=== PATIENT | female | born 1995 | race Caucasian/White ===

== ENCOUNTER 2017-08-16 18:37 | Emergency (ER) | payer MEDICAID, OTHER ==
[~2017-08-16] VITALS: Ht 160 cm; Wt 59.5 kg
[2017-08-16 18:41] VITALS: BP 152/80; PULSE 95; RESP 16; TEMP 98.3; O2SAT 99
--- NOTE | 2017-08-16 19:48 | PD ---
HPI Chief Complaint: Abdominal Pain Time Seen by Provider: 19:34 Travel History International Travel<30 days: No Contact w/Intl Traveler<30days: No Traveled to known affect area: No History of Present Illness HPI The patient is a 22-year-old female who complains of right upper quadrant pain intermittently for a year. She is visiting from [place] and plans to go back to [place] to see her water pump assembler. She states she ate chili cheese dog yesterday and the pain got worse. She states a year ago she had a normal gallbladder ultrasound and hida scan. She then saw a water pump assembler who thought this may be ulcer pain and treated her with dexolant. The patient states this did not work. The water pump assembler did not do upper endoscopy yet on this patient. She denies any melanotic or bloody stools. The patient plans to return to [place], she wants blood work done here to see if anything bad is going on. If not, she will return to [place] and see her water pump assembler. PFSH Past Medical History ?: Not LMP: 07/19/2017 Social History Tobacco Use: No Allergies-Medications (Allergen,Severity, Reaction): Coded Allergies: morphine (Verified Allergy, Severe, STOPPED BREATHING, 08/16/17) avocado (Verified Allergy, Intermediate, ITCHY THROAT, 08/16/17) azithromycin (Verified Allergy, Intermediate, THROAT ITCHING, 08/16/17) Reported Meds & Prescriptions Reported Meds & Active Scripts Active Zofran (Ondansetron HCl) 4 Mg Tab 4 Mg PO Q6HR PRN Percocet (Oxycodone-Acetaminophen) 5-325 mg Tab 1 Tab PO Q6H PRN Review of Systems Except as stated in HPI: all other systems reviewed are Neg Physical Exam Narrative GENERAL: The patient is alert, oriented 3 and slight apparent distress with her abdominal discomfort. Her vital signs show blood pressure 152/80 but are otherwise normal. SKIN: Focused skin assessment warm/dry. HEAD: Atraumatic. Normocephalic. EYES: Pupils equal and round. No scleral icterus. No injection or drainage. ENT: No nasal bleeding or discharge. Mucous membranes pink and moist. NECK: Trachea midline. No JVD. CARDIOVASCULAR: Regular rate and rhythm. No murmur appreciated. RESPIRATORY: No accessory muscle use. Clear to auscultation. Breath sounds equal bilaterally. GASTROINTESTINAL: Abdomen soft, with the double tenderness of the right upper quadrant to direct palpation, nondistended. Hepatic and splenic margins not palpable. Briceno's sign is negative. There is no flank tenderness present. MUSCULOSKELETAL: No obvious deformities. No clubbing. No cyanosis. No edema. NEUROLOGICAL: Awake and alert. No obvious cranial nerve deficits. Motor grossly within normal limits. Normal speech. PSYCHIATRIC: Appropriate mood and affect; insight and judgment normal. Data Data Last Documented VS Vital Signs Date Time Temp Pulse Resp B/P (MAP) Pulse Ox O2 Delivery O2 Flow Rate FiO2 08/16/17 18:41 98.3 95 16 152/80 (104) 99 Orders Orders Complete Blood Count With Diff (08/16/17 19:48) Comprehensive Metabolic Panel (08/16/17 19:48) Lipase (08/16/17 19:48) Urinalysis - C+S If Indicated (08/16/17 19:48) Hydromorphone Pf Inj (Dilaudid Pf Inj) (08/16/17 20:00) Ondansetron Inj (Zofran Inj) (08/16/17 20:00) Sodium Chlor 0.9% 1000 Ml Inj (Ns 1000 M (08/16/17 20:00) Labs Laboratory Tests Test 08/16/17 20:03 White Blood Count 11.2 TH/MM3 Red Blood Count 4.65 MIL/MM3 Hemoglobin 13.9 GM/DL Hematocrit 41.7 % Mean Corpuscular Volume 89.7 FL Mean Corpuscular Hemoglobin 29.8 PG Mean Corpuscular Hemoglobin Concent 33.3 % Red Cell Distribution Width 11.8 % Platelet Count 201 TH/MM3 Mean Platelet Volume 9.6 FL Neutrophils (%) (Auto) 66.1 % Lymphocytes (%) (Auto) 25.8 % Monocytes (%) (Auto) 5.7 % Eosinophils (%) (Auto) 2.1 % Basophils (%) (Auto) 0.3 % Neutrophils # (Auto) 7.5 TH/MM3 Lymphocytes # (Auto) 2.9 TH/MM3 Monocytes # (Auto) 0.6 TH/MM3 Eosinophils # (Auto) 0.2 TH/MM3 Basophils # (Auto) 0.0 TH/MM3 CBC Comment DIFF FINAL Differential Comment Urine Color STRAW Urine Turbidity CLEAR Urine pH 6.0 Urine Specific [place] 1.003 Urine Protein NEG mg/dL Urine Glucose (UA) NEG mg/dL Urine Ketones NEG mg/dL Urine Occult Blood NEG Urine Nitrite NEG Urine Bilirubin NEG Urine Leukocyte Esterase NEG Urine RBC 0-3 /hpf Urine WBC 0-2 /hpf Urine Squamous Epithelial Cells 6-8 /hpf Urine Bacteria FEW /hpf Microscopic Urinalysis Comment CULT NOT INDICATED Blood Urea Nitrogen 11 MG/DL Creatinine 0.66 MG/DL Random Glucose 84 MG/DL Total Protein 7.3 GM/DL Albumin 3.9 GM/DL Calcium Level 9.0 MG/DL Alkaline Phosphatase 75 U/L Aspartate Amino Transf (AST/SGOT) 11 U/L Alanine Aminotransferase (ALT/SGPT) 18 U/L Total Bilirubin 0.4 MG/DL Sodium Level 138 MEQ/L Potassium Level 3.5 MEQ/L Chloride Level 106 MEQ/L Carbon Dioxide Level 25.7 MEQ/L Anion Gap 6 MEQ/L Estimat Glomerular Filtration Rate 110 ML/MIN Lipase 92 U/L MDM Medical Decision Making Medical Screen Exam Complete: Yes Emergency Medical Condition: Yes Medical Record Reviewed: Yes Interpretation(s) The urinalysis is normal and culture is not indicated. The complete metabolic profile is normal. The lipase is normal. The CBC is normal except for a minimal elevation of the white count at 11,200. Differential Diagnosis Cholelithiasis with colic, pancreatitis, acute cholecystitis, ulcer pain, abdominal pain etiology undetermined Narrative Course The patient has abdominal pain etiology undetermined. She wants to go to [place] as soon as possible to see her water pump assembler. She is encouraged to do this. She is given the blood work to take to him. The blood work is normal except for a minimal elevation of the white count which is likely due to some slight dehydration. The patient did not want an IV, IV fluids or pain medications while she was here. Impression is abdominal pain unknown etiology Plan: The patient is given Percocet 5 and Zofran. Diagnosis Primary Impression: Abdominal pain of unknown etiology Med/Other Pt SpecificInfo: Prescription(s) given Scripts Ondansetron (Zofran) 4 Mg Tab 4 MG PO Q6HR Y for NAUSEA OR VOMITING, #21 TAB 0 Refills Prov: Justin Lopez MD 08/16/17 Oxycodone-Acetaminophen (Percocet) 5-325 mg Tab 1 TAB PO Q6H Y for PAIN, #15 TAB 0 Refills Prov: Justin Lopez MD 08/16/17 Disposition: 01 DISCHARGE HOME Condition: Stable Justin Lopez MD Aug 16, 2017 19:48
[2017-08-16] MEDS ORDERED: SODIUM CHLOR 0.9% 1000 ML INJ 1,000 ML IV SCH (20:00)
[2017-08-16] MEDS ORDERED: ONDANSETRON HCL 4 MG/2 ML VIAL IV ONE (20:00)
[2017-08-16] MEDS ORDERED: HYDROmorphone HCL PF 1 MG/ML VIAL IVP ONE (20:00)
[2017-08-16 20:23] LABS: BILIRUBIN, URINE NEG (NEG); BLOOD, URINE NEG (NEG); GLUCOSE,URINE NEG (NEG); KETONE, URINE NEG (NEG); NITRITE,URINE NEG (NEG); URINE LEUKOCYTE ESTERASE NEG (NEG)
[2017-08-16 20:29] LABS: URINE COLOR STRAW (YELLW/STRAW)
[2017-08-16 20:30] LABS: AUTOMATED NEUTROPHIL # 7.5 TH/MM3 (1.8-7.7); BASOPHIL % 0.3 % (0.0-2.0); EOSINOPHIL # 0.2 TH/MM3 (0-0.4); EOSINOPHIL % 2.1 % (0.0-4.0); HEMATOCRIT 41.7 % (35.0-46.0); HEMOGLOBIN 13.9 GM/DL (11.6-15.3); LYMPH % 25.8 % (9.0-44.0); LYMPHOCYTE # 2.9 TH/MM3 (1.0-4.8); MEAN CELL VOLUME 89.7 FL (80.0-100.0); MEAN CORPUSCULAR HEMOGLOBIN 29.8 PG (27.0-34.0); MEAN CORPUSCULAR HGB CONC 33.3 % (32.0-36.0); MEAN PLATELET VOLUME 9.6 FL (7.0-11.0); MONO % 5.7 % (0.0-8.0); MONOCYTE # 0.6 TH/MM3 (0-0.9); NEUT % 66.1 % (16.0-70.0); PLATELET COUNT 201 TH/MM3 (150-450); RBC, URINE 0-3 /hpf (0-3); RED BLOOD COUNT 4.65 MIL/MM3 (4.00-5.30); RED CELL DISTRIBUTION WIDTH 11.8 % (11.6-17.2); WBC, URINE 0-2 /hpf (0-5); WHITE BLOOD COUNT 11.2 TH/MM3 (4.0-11.0)
[2017-08-16 20:31] LABS: BACTERIA, URINE FEW /hpf
[2017-08-16 20:32] LABS: CHLORIDE 106 MEQ/L (98-107); SODIUM (NA) 138 MEQ/L (136-145)
[2017-08-16 20:36] LABS: ALBUMIN 3.9 GM/DL (3.4-5.0); BICARBONATE 25.7 MEQ/L (21.0-32.0); BLOOD UREA NITROGEN 11 MG/DL (7-18); GLUCOSE,RANDOM 84 MG/DL (74-106); LIPASE 92 U/L (73-393)
[2017-08-16 20:39] LABS: ALT (GPT) 18 U/L (10-53); AST (GOT) 11 U/L (15-37); CREATININE 0.66 MG/DL (0.50-1.00); GLOMERULAR FILTRATION RATE 110 ML/MIN (>89)
[2017-08-16 20:40] LABS: TOTAL BILIRUBIN ADULT 0.4 MG/DL (0.2-1.0); TOTAL PROTEIN 7.3 GM/DL (6.4-8.2)
[2017-08-16 20:41] LABS: ALKALINE PHOSPHATASE 75 U/L (45-117)
[2017-08-16] MEDS ORDERED: PERC5TAB12 PO (20:57)
[2017-08-16] MEDS ORDERED: ZOFR4TAB PO (20:57)
[2017-08-16 21:14] VITALS: BP 122/74; TEMP 98.2
== END 2017-08-16 21:15 | disposition home or self-care (01) ==
LOC: PHED 18:37
DX: R10.11 Right upper quadrant pain (principal); D72.829 Elevated white blood cell count, unspecified
CPT/HCPCS: 80053; 81001; 83690; 85025; 99284